=== PATIENT | female | born 1945 | race Caucasian/White ===

== ENCOUNTER → 2019-06-13 | Outpatient (CLI) | payer MEDICARE, OTHER ==
--- NOTE | 2019-06-13 12:33 | PCVCIMAG ---
APPROVED REPORT Study performed: 06/13/2019 11:29:57 Exam: Stress Echocardiogram Indication: fatigue Patient Location: Echo lab Stress Nurse: Geraldine Street RN Room #: 2 Status: routine Ht: 5 ft 4 in HR: 68 bpm BP: 110/72 mmHg Rhythm: NSR Medical History Medical History: No history of CAD Previous Cardiac Procedures: none Pretest Chest Pain Characteristics: No chest pain Exercise History: Physically active Procedure The patient underwent an Exercise Stress Test using the [place] Protocol. Blood pressure, heart rate, and EKG were monitored. An Echocardiogram was performed by identification technician in four stages in quad fashion. At peak stress, four selected images were obtained and placed side by side with resting images for comparison. Stress Test Details Stress Test: Exercise stress testing was performed using a [place] protocol. HR Resting HR: 68 bpmMax Heart Rate (APMHR): 147 bpm Max HR Achieved: 153 bpmTarget HR (85% APMHR): 124 bpm % of APMHR: 104 Recovery HR: 96 bpm HR response to stress: Normal HR response to stress BP Resting BP: 110/72 mmHg Max BP: 150/64 mmHg Recovery BP: 140/72 mmHg BP response to stress: Normal blood pressure response to stress. ECG Resting ECG: Sinus Rhythm Stress ECG: Sinus Rhythm, NSSTT changes ST Change: Non-ischemic Maximum ST Deviation: 0 mm Arrhythmia: Occ PVCs Recovery ECG: Sinus Rhythm, NSSTT changes Recovery ST Change: Non-ischemic Recovery ST Deviation: 0 mm Recovery Arrhythmia: PVCs Clinical Reason for Termination: Maximal effort Stress Symptoms: fatigue Exercise duration: 6 min 00 sec Highest Stage Achieved: Stage 2: 2.5 mph at 12% grade. Exercise capacity: 7.0 METs Overall Exercise Capacity for Age: Average Scale: Active Angina Score: None No complications. Stress ECG Conclusion The patient exercised according to the [facility] protocol for 6:00 mins; achieving a work level of 7.0 METS. The resting heart rate of 68 bpm esperanza to a maximum heart rate of 153 bpm. This value represent 104% of the maximal, age-predicted heart rate. The resting blood pressure of 110/72 mmHg, esperanza to a maximum blood pressure of 150/64 mmHg. The exercise test was stopped due to fatigue. Burch Treadmill Score is 6.0 which is Low risk. Pre-Stress Echo The resting Echocardiogram showed normal left ventricular contractility with an estimated Ejection Fraction of about 55-60%. Normal wall motion in all segments on baseline images. Post-Stress Echo The stress Echocardiogram showed normal left ventricular contractility with an estimated Ejection Fraction of about 65-70%. Normal augmentation of wall motion in all segments on post stress images. Clinical No clinical or ECG evidence for ischemia. Conclusion Clinical Response: Non-ischemic Exercise Capacity: Average Stress ECG Response: Non-ischemic Stress Echo Images: Non-ischemic No clinical, EKG or echocardiographic evidence for ischemia. No echocardiographic evidence for exercise induced ischemia. Normal stress echocardiogram with maximal exercise stress. No prior study available for comparison. <Conclusion> No clinical, EKG or echocardiographic evidence for ischemia. No echocardiographic evidence for exercise induced ischemia. Normal stress echocardiogram with maximal exercise stress.
== END | disposition home or self-care (01) ==
LOC: PCVCIMAG 11:12
PROVIDERS: ATTEND Nurse Practitioner
DX: R53.83 Other fatigue (principal); L29.9 Pruritus, unspecified
CPT/HCPCS: 93325; 93351